=== PATIENT | female | born 1960 | race Caucasian/White ===

== ENCOUNTER 2016-11-29 20:43 | Emergency (ER) | payer OTHER ==
[~2016-11-29] VITALS: Ht 167.6 cm; Wt 62.5 kg
[~2016-11-29 20:43] MED LIST: ALBU17I INH; HYDR12.56 PO; LISI-363 PO; LORT5TAB PO; PRIL40CA PO; ZOFR4TAB3 SL
[2016-11-29 20:51] VITALS: BP 144/98; PULSE 89; RESP 18; TEMP 98.8; O2SAT 97
== END 2016-11-29 22:24 | disposition left against medical advice (07) ==
LOC: PHED 20:43
DX: R68.89 Other general symptoms and signs (principal)
CPT/HCPCS: 99281

== ENCOUNTER 2018-03-05 14:32 | Emergency (ER) | payer OTHER ==
[~2018-03-05] VITALS: Ht 167.6 cm; Wt 56.8 kg
[2018-03-05 14:39] VITALS: BP 137/93; PULSE 125; RESP 18; TEMP 98.7; O2SAT 96
[2018-03-05] MEDS ORDERED: LISI40TA PO (14:54)
[2018-03-05] MEDS ORDERED: PRIL20TA2 (14:56)
[2018-03-05] MEDS ORDERED: SODIUM CHLOR 0.9% 1000 ML INJ 1,000 ML IV ONE (15:00)
--- NOTE | 2018-03-05 15:24 | PD ---
HPI Chief Complaint: Psychiatric Symptoms Time Seen by Provider: 14:51 Travel History International Travel<30 days: No Contact w/Intl Traveler<30days: No Traveled to known affect area: No History of Present Illness HPI 58-year-old female presents the ED under Allen act for psychiatric evaluation. According to the Allen act paperwork the patient called her sister and stated that she felt "I wish I would just go to sleep and never wake up." On presentation the patient admits making the statements. However she denies any active suicidal ideation. She denies any psychiatric history. She takes no psychiatric medications. She has never been hospitalized for psychiatric reasons. She states that she is under increased social pressures, taking care of her [id number] which has been somewhat overwhelming. Patient has chronic health problems of her own, high blood pressure and Crohn's disease for which she underwent partial colectomy and has a permanent ostomy device. She states that she has lost a few pounds in the last couple days and feels as if she might be dehydrated. She has no somatic complaints. She denies headache, dizziness, chest pain, shortness of breath, abdominal pain, nausea, vomiting, dysuria. She states, "This is not who I am. I am so embarrassed." She admits to drinking one half bottle of wine last night. Denies licit drug use or cigarette smoking. PFSH Past Medical History Hx Anticoagulant Therapy: No Autoimmune Disease: No Blood Disorders: No Cancer: No Cardiovascular Problems: Yes (htn) Chemotherapy: No Cerebrovascular Accident: No Diabetes: No Endocrine: No Gastrointestinal Disorders: Yes Genitourinary: No Hypertension: Yes Musculoskeletal: No Neurologic: No Psychiatric: No Respiratory: No Immunizations Current: Yes Radiation Therapy: No ?: Not Menopausal: No Past Surgical History Abdominal Surgery: Yes (COLECTOMY) Body Medical Devices: ILEOSTOMY Cardiac Surgery: No Ear Surgery: No Endocrine Surgery: No Eye Surgery: No Genitourinary Surgery: No Gynecologic Surgery: No Hysterectomy: No Oral Surgery: No Thoracic Surgery: No Other Surgery: Yes Social History Alcohol Use: Yes (2 DRINKS PER WEEK- AVERAGE) Tobacco Use: No Substance Use: No Allergies-Medications (Allergen,Severity, Reaction): Coded Allergies: Sulfa (Sulfonamide Antibiotics) (Unverified Allergy, Severe, 04/25/17) morphine (Unverified Allergy, Severe, 04/25/17) Reported Meds & Prescriptions Reported Meds & Active Scripts Active Reported Prilosec (Omeprazole Magnesium) 20 Mg Tab Lisinopril 40 Mg Tab 40 Mg PO DAILY Proventil Mdi (Albuterol Sulfate) 17 Gm Aero 2 Puff INH Q4HPRN Review of Systems Except as stated in HPI: all other systems reviewed are Neg Physical Exam Narrative GENERAL: Well-nourished, well-developed white female no acute distress. PSYCH: Anxious, occasionally tearful. SKIN: Focused skin assessment warm/dry. Well-healed midline scar of the abdomen without signs of infection. HEAD: Normocephalic. EYES: No scleral icterus. No injection or drainage. NECK: Supple, trachea midline. No JVD or lymphadenopathy. CARDIOVASCULAR: Regular rate and rhythm without murmurs, gallops, or rubs. RESPIRATORY: Breath sounds clear and equal bilaterally. No accessory muscle use. GASTROINTESTINAL: Abdomen soft, non-tender, nondistended. Well-healed ostomy in the right lower quadrant. Brown stool in the collection bag. MUSCULOSKELETAL: No cyanosis, or edema. Walks with a normal gait. Moves extremities spontaneously. BACK: Nontender without obvious deformity. No CVA tenderness. Data Data Last Documented VS Vital Signs Date Time Temp Pulse Resp B/P (MAP) Pulse Ox O2 Delivery O2 Flow Rate FiO2 03/05/18 15:37 98.7 125 137/93 (108) 96 Room Air 03/05/18 14:39 18 Orders Orders Complete Blood Count With Diff (03/05/18 14:51) Comprehensive Metabolic Panel (03/05/18 14:51) Thyroid Stimulating Hormone (03/05/18 14:51) Urinalysis - C+S If Indicated (03/05/18 14:51) Iv Access Insert/Monitor (03/05/18 14:51) Psych Screen (03/05/18 14:51) Drug Screen, Random Urine (03/05/18 14:51) Alcohol (Ethanol) (03/05/18 14:51) Sodium Chlor 0.9% 1000 Ml Inj (Ns 1000 M (03/05/18 15:00) Lorazepam (Ativan) (03/05/18 17:00) Labs Laboratory Tests Test 03/05/18 15:00 03/05/18 15:50 White Blood Count 7.4 TH/MM3 Red Blood Count 4.26 MIL/MM3 Hemoglobin 13.9 GM/DL Hematocrit 41.8 % Mean Corpuscular Volume 98.3 FL Mean Corpuscular Hemoglobin 32.7 PG Mean Corpuscular Hemoglobin Concent 33.3 % Red Cell Distribution Width 13.7 % Platelet Count 302 TH/MM3 Mean Platelet Volume 7.5 FL Neutrophils (%) (Auto) 52.3 % Lymphocytes (%) (Auto) 38.9 % Monocytes (%) (Auto) 7.5 % Eosinophils (%) (Auto) 0.7 % Basophils (%) (Auto) 0.6 % Neutrophils # (Auto) 3.9 TH/MM3 Lymphocytes # (Auto) 2.9 TH/MM3 Monocytes # (Auto) 0.6 TH/MM3 Eosinophils # (Auto) 0.1 TH/MM3 Basophils # (Auto) 0.0 TH/MM3 CBC Comment DIFF FINAL Differential Comment Blood Urea Nitrogen 23 MG/DL Creatinine 0.70 MG/DL Random Glucose 92 MG/DL Total Protein 8.2 GM/DL Albumin 4.6 GM/DL Calcium Level 9.7 MG/DL Alkaline Phosphatase 77 U/L Aspartate Amino Transf (AST/SGOT) 19 U/L Alanine Aminotransferase (ALT/SGPT) 25 U/L Total Bilirubin 0.2 MG/DL Sodium Level 146 MEQ/L Potassium Level 4.0 MEQ/L Chloride Level 116 MEQ/L Carbon Dioxide Level 16.9 MEQ/L Anion Gap 13 MEQ/L Estimat Glomerular Filtration Rate 86 ML/MIN Thyroid Stimulating Hormone 3rd Gen 0.908 uIU/ML Ethyl Alcohol Level 180 MG/DL Urine Color Straw Urine Turbidity CLEAR Urine pH 6.0 Urine Specific [place] 1.010 Urine Protein 100 mg/dL Urine Glucose (UA) NEG mg/dL Urine Ketones NEG mg/dL Urine Occult Blood NEG Urine Nitrite NEG Urine Bilirubin NEG Urine Urobilinogen LESS THAN 2 mg/dL Urine Leukocyte Esterase TRACE Urine RBC LESS THAN 1 /hpf Urine WBC 4 /hpf Urine Squamous Epithelial Cells <1 /hpf Urine Hyaline Casts 4 /lpf Urine Mucus FEW /lpf Microscopic Urinalysis Comment CULT NOT INDICATED Urine Opiates Screen NEG Urine Barbiturates Screen NEG Urine Amphetamines Screen NEG Urine Benzodiazepines Screen NEG Urine Cocaine Screen NEG Urine Cannabinoids Screen NEG MDM Medical Decision Making Medical Screen Exam Complete: Yes Emergency Medical Condition: Yes Differential Diagnosis Adjustment disorder versus anxiety versus bipolar versus depression versus dementia versus electrolyte disorder versus malingering versus mood disorder versus ODD versus psychosis versus PTSD versus schizophrenia versus schizoaffective disorder versus substance-induced mood disorder versus other Narrative Course 58-year-old female presents the ED under Allen act for psychiatric evaluation. No somatic complaints on presentation. Patient's tachycardic, anxious appearing on presentation. Physical exam reassuring. IV was established. Patient was administered 1 L normal saline. CBC, CMP, TSH, UA unremarkable. Tox screen negative. Alcohol 180. Patient's placed on CIWA protocol. She is administered 1 mg Ativan p.o. She is medically clear for psychiatric evaluation. 190: Patient was evaluated by Dr. Jimenez, psychiatrist. Allen act was lifted. Patient is diagnosed with adjustment disorder. Plan is for her to follow-up with outpatient resources. She is stable and discharged home. Diagnosis Primary Impression: Adjustment disorder Qualified Codes: F43.20 - Adjustment disorder, unspecified Referrals: Psychiatrist Additional Instructions: Rest, hydrate. Avoid known stressors as possible. Follow-up with outpatient psychiatric resources. Return to the ED for worsening symptoms or any urgent or emergent medical condition. Disposition: 01 DISCHARGE HOME Condition: Stable Shruthi Noyola Mar 05, 2018 15:24
[2018-03-05 15:37] VITALS: BP 137/93; PULSE 125; TEMP 98.7; O2SAT 96
[2018-03-05 15:47] LABS: AUTOMATED NEUTROPHIL # 3.9 TH/MM3 (1.8-7.7); BASOPHIL % 0.6 % (0.0-2.0); EOSINOPHIL # 0.1 TH/MM3 (0-0.4); EOSINOPHIL % 0.7 % (0.0-4.0); HEMATOCRIT 41.8 % (35.0-46.0); HEMOGLOBIN 13.9 GM/DL (11.6-15.3); LYMPH % 38.9 % (9.0-44.0); LYMPHOCYTE # 2.9 TH/MM3 (1.0-4.8); MEAN CELL VOLUME 98.3 FL (80.0-100.0); MEAN CORPUSCULAR HEMOGLOBIN 32.7 PG (27.0-34.0); MEAN CORPUSCULAR HGB CONC 33.3 % (32.0-36.0); MEAN PLATELET VOLUME 7.5 FL (7.0-11.0); MONO % 7.5 % (0.0-8.0); MONOCYTE # 0.6 TH/MM3 (0-0.9); NEUT % 52.3 % (16.0-70.0); PLATELET COUNT 302 TH/MM3 (150-450); RED BLOOD COUNT 4.26 MIL/MM3 (4.00-5.30); RED CELL DISTRIBUTION WIDTH 13.7 % (11.6-17.2); WHITE BLOOD COUNT 7.4 TH/MM3 (4.0-11.0)
[2018-03-05 16:07] LABS: BILIRUBIN, URINE NEG (NEG); BLOOD, URINE NEG (NEG); GLUCOSE,URINE NEG (NEG); HYALINE CAST, URINE 4 /lpf (RARE); KETONE, URINE NEG (NEG); MUCUS URINE FEW /lpf (OCC); NITRITE,URINE NEG (NEG); SQUAMOUS EPITHELIAL CELL URINE <1 /hpf (0-5); URINE COLOR Straw (YELLW/STRAW); URINE LEUKOCYTE ESTERASE TRACE (NEG)
[2018-03-05 16:13] LABS: ALKALINE PHOSPHATASE 77 U/L (45-117); TOTAL BILIRUBIN ADULT 0.2 MG/DL (0.2-1.0); TOTAL PROTEIN 8.2 GM/DL (6.4-8.2)
[2018-03-05 16:17] LABS: ALBUMIN 4.6 GM/DL (3.4-5.0); ALT (GPT) 25 U/L (10-53); AST (GOT) 19 U/L (15-37); BICARBONATE 16.9 MEQ/L (21.0-32.0); BLOOD UREA NITROGEN 23 MG/DL (7-18); CALCIUM 9.7 MG/DL (8.5-10.1); CHLORIDE 116 MEQ/L (98-107); GLOMERULAR FILTRATION RATE 86 ML/MIN (>89); GLUCOSE,RANDOM 92 MG/DL (74-106); SODIUM (NA) 146 MEQ/L (136-145)
[2018-03-05] MEDS ORDERED: LORazepam 1 MG TAB PO ONE (17:00)
[2018-03-05 19:14] VITALS: BP 138/92
== END 2018-03-05 19:15 | disposition home or self-care (01) ==
LOC: NEPD 14:32
DX: F43.20 Adjustment disorder, unspecified (principal); I10 Essential (primary) hypertension; Z79.899 Other long term (current) drug therapy
CPT/HCPCS: 80053; 80307; 81001; 84443; 85025; 96360; 99284; J7030